=== PATIENT | male | born 1960 | race Caucasian/White ===

== ENCOUNTER → 2016-11-09 | Outpatient (CLI) | payer BC | LOC: KOH-I 11-08 11:00 | DX: I10 Essential (primary) hypertension (principal) | CPT/HCPCS: 93975 ==

== ENCOUNTER → 2021-03-31 | Outpatient (CLI) | payer BC ==
[~2021-03-31] MED LIST: AMLODIPINE BESY10 MG PO; ASPIRIN EC81 MG PO; ATORVASTATIN CA20 MG PO; CATAPRES 0.1MG0.1 MG PO; CHRONULAC20 GM/30 M PO; CLOPIDOGREL75 MG PO; COLACE 100MG C100 MG PO; DUEXIS 800-26.1 EACH PO; ELIQUIS 5 MG TAB5 MG PO; HYDRALAZINE HCL25 MG PO; HYDRALAZINE HCL50 MG PO; LIPITOR80 MG PO; LISINOPRIL20 MG PO; LOPRESSOR 25 MG25 MG PO; LOPRESSOR100 MG PO; NITROGLYCERIN0.4 MG SL; PANTOPRAZOLE SO40 MG PO; POLYETHYLENE GL17 GM PO; SENNA LAX8.6 MG PO; TYLOPHEN500 MG PO; ZESTRIL2.5 MG PO; ZESTRIL5 MG PO
[2021-03-31 14:55] LABS: BUN/CREATININE RATIO 14 (0-10)
[2021-03-31 16:57] LABS: HEMOGLOBIN 14.8 gm/dl (14.0-17.5); RED BLOOD COUNT 5.06 M/UL (4.20-5.50); WHITE BLOOD COUNT 7.2 K/UL (4.5-11.0)
== END ==
LOC: LAB 13:42
PROVIDERS: Family Medicine; Physician Assistant Surgical
DX: I25.10 Atherosclerotic heart disease of native coronary artery without angina pectoris (principal)
CPT/HCPCS: 36415; 80053; 80061; 85025

== ENCOUNTER → 2021-09-06 | Outpatient (CLI) | payer BC ==
[2021-09-07 08:13] LABS: A/G RATIO 1.5 (1.2-2.2); ALKALINE PHOSPHATASE, S 97 IU/L (44-121); ALT (SGPT) 28 IU/L (0-44); AST (SGOT) 22 IU/L (0-40); BILIRUBIN, TOTAL 0.7 mg/dL (0.0-1.2); BUN 10 mg/dL (6-24); BUN/CREATININE RATIO 9 (9-20); CALCIUM, SERUM 9.9 mg/dL (8.7-10.2); CARBON DIOXIDE, TOTAL 27 mmol/L (20-29); CHLORIDE, SERUM 103 mmol/L (96-106); CHOLESTEROL, TOTAL 84 mg/dL (100-199); CREATININE, SERUM 1.14 mg/dL (0.76-1.27); EGFR IF AFRICN AM 81 (>59); EGFR IF NONAFRICN AM 70 (>59); GLUCOSE, SERUM 183 mg/dL (65-99); HDL CHOLESTEROL 32 mg/dL (>39); LDL CHOLESTEROL CALC 31 mg/dL (0-99); POTASSIUM, SERUM 4.5 mmol/L (3.5-5.2); PROTEIN, TOTAL, SERUM 7.4 g/dL (6.0-8.5); SODIUM, SERUM 141 mmol/L (134-144); T. CHOL/HDL RATIO 2.6 ratio (0.0-5.0); TRIGLYCERIDES 116 mg/dL (0-149)
== END ==
LOC: LAB 13:12
PROVIDERS: Physician Assistant Surgical
DX: N28.0 Ischemia and infarction of kidney (principal); I74.10 Embolism and thrombosis of unspecified parts of aorta; I25.10 Atherosclerotic heart disease of native coronary artery without angina pectoris
CPT/HCPCS: 36415; 80053; 80061

== ENCOUNTER → 2021-09-06 | Outpatient (CLI) | payer BC | LOC: HEART 5 15:16 | DX: I48.0 Paroxysmal atrial fibrillation (principal) ==

== ENCOUNTER → 2021-09-07 | Outpatient (CLI) | payer BC | LOC: CT 10:53 | DX: I74.10 Embolism and thrombosis of unspecified parts of aorta (principal); I70.1 Atherosclerosis of renal artery | CPT/HCPCS: Q9967 ==

== ENCOUNTER → 2021-09-29 | Outpatient (CLI) | payer BC ==
[~2021-09-29] MED LIST changes: +SOTALOL80 MG PO; +ZYRTEC10 MG PO
[2021-09-29 12:54] LABS: HEMOGLOBIN 15.1 gm/dl (14.0-17.5); RED BLOOD COUNT 5.27 M/UL (4.20-5.50); WHITE BLOOD COUNT 7.4 K/UL (4.5-11.0)
[2021-09-30 07:10] LABS: CREATININE, SERUM 1.09 mg/dL (0.76-1.27)
[2021-09-30 08:14] LABS: TSH 4.63 uIU/mL (0.450-4.500)
== END ==
LOC: LAB 11:41
PROVIDERS: Internal Medicine Cardiovascular Disease
DX: I25.10 Atherosclerotic heart disease of native coronary artery without angina pectoris (principal); I10 Essential (primary) hypertension; R00.2 Palpitations; I48.0 Paroxysmal atrial fibrillation; R00.1 Bradycardia, unspecified
CPT/HCPCS: 36415; 80048; 84439; 84443; 84481; 85025; J7040; J7050

== ENCOUNTER → 2021-10-01 | Outpatient (CLI) | payer BC | LOC: CATH 07:14 → EDSTATUS 07:30 → CATH 07:30 | DX: I48.19 Other persistent atrial fibrillation (principal); I25.119 Atherosclerotic heart disease of native coronary artery with unspecified angina pectoris; I10 Essential (primary) hypertension; I25.2 Old myocardial infarction; I74.10 Embolism and thrombosis of unspecified parts of aorta; K21.9 Gastro-esophageal reflux disease without esophagitis; Z79.01 Long term (current) use of anticoagulants; Z79.82 Long term (current) use of aspirin; Z79.891 Long term (current) use of opiate analgesic; Z79.899 Other long term (current) drug therapy; Z95.5 Presence of coronary angioplasty implant and graft; Z98.52 Vasectomy status; Z82.49 Family history of ischemic heart disease and other diseases of the circulatory system | CPT/HCPCS: 92960; 93005; J1200; J1742; J2250; J2310; J3010; J7040; J7050 ==

== ENCOUNTER → 2021-10-27 | Outpatient (CLI) | payer BC ==
[2021-10-27 10:29] LABS: HEMOGLOBIN 14.3 gm/dl (14.0-17.5); RED BLOOD COUNT 5.07 M/UL (4.20-5.50); WHITE BLOOD COUNT 7.1 K/UL (4.5-11.0)
[2021-10-28 08:15] LABS: A/G RATIO 1.6 (1.2-2.2); ALKALINE PHOSPHATASE, S 74 IU/L (44-121); ALT (SGPT) 23 IU/L (0-44); AST (SGOT) 18 IU/L (0-40); BILIRUBIN, TOTAL 0.7 mg/dL (0.0-1.2); BUN 15 mg/dL (6-24); BUN/CREATININE RATIO 13 (9-20); CALCIUM, SERUM 8.9 mg/dL (8.7-10.2); CARBON DIOXIDE, TOTAL 21 mmol/L (20-29); CHLORIDE, SERUM 102 mmol/L (96-106); CHOLESTEROL, TOTAL 78 mg/dL (100-199); CREATININE, SERUM 1.16 mg/dL (0.76-1.27); GLOBULIN, TOTAL 2.6 g/dL (1.5-4.5); GLUCOSE, SERUM 168 mg/dL (65-99); HDL CHOLESTEROL 30 mg/dL (>39); LDL CHOLESTEROL CALC 30 mg/dL (0-99); POTASSIUM, SERUM 3.8 mmol/L (3.5-5.2); PROTEIN, TOTAL, SERUM 6.8 g/dL (6.0-8.5); SODIUM, SERUM 139 mmol/L (134-144); T. CHOL/HDL RATIO 2.6 ratio (0.0-5.0); TRIGLYCERIDES 93 mg/dL (0-149)
== END ==
LOC: LAB 09:46
PROVIDERS: Family Medicine
DX: I25.10 Atherosclerotic heart disease of native coronary artery without angina pectoris (principal)
CPT/HCPCS: 36415; 80053; 80061; 85025

== ENCOUNTER → 2021-12-09 | Outpatient (CLI) | payer BC | LOC: HEART 5 07:43 | DX: I20.9 Angina pectoris, unspecified (principal); Z13.9 Encounter for screening, unspecified; I48.0 Paroxysmal atrial fibrillation; R00.2 Palpitations; I08.1 Rheumatic disorders of both mitral and tricuspid valves | CPT/HCPCS: 78452; A9502; J2785 ==

== ENCOUNTER → 2022-01-07 | Outpatient (CLI) | payer BC ==
[~2022-01-07] MED LIST changes: +BROMPHENIR-PSE118 ML PO; +CETIRIZINE HCL10 MG PO; +ELIQUIS5 MG PO; +IBU800 MG PO; +ISOSORBIDE MONO30 MG PO; +LISINOPRIL10 MG PO; +METFORMIN HCL1000 M1 PO; +METOPROLOL TART50 MG PO; +SOTALOL160 MG PO
[2022-01-07 14:04] LABS: HEMOGLOBIN 15.5 gm/dl (14.0-17.5); RED BLOOD COUNT 5.48 M/UL (4.20-5.50); WHITE BLOOD COUNT 7.7 K/UL (4.5-11.0)
[2022-01-07 14:42] LABS: BUN/CREATININE RATIO 11 (0-10)
== END ==
LOC: LAB 13:35
PROVIDERS: Internal Medicine Cardiovascular Disease
DX: I25.10 Atherosclerotic heart disease of native coronary artery without angina pectoris (principal); I48.0 Paroxysmal atrial fibrillation; R94.39 Abnormal result of other cardiovascular function study
CPT/HCPCS: 36415; 71046; 80048; 85025

== ENCOUNTER 2022-01-11 06:50 | Outpatient (CLI) | payer BC ==
[~2022-01-11] VITALS: Ht 182.9 cm; Wt 116.0 kg
[~2022-01-11 06:50] MED LIST changes: -BROMPHENIR-PSE118 ML PO; -CETIRIZINE HCL10 MG PO; -ELIQUIS5 MG PO; -IBU800 MG PO; -ISOSORBIDE MONO30 MG PO; -LISINOPRIL10 MG PO; -METFORMIN HCL1000 M1 PO; -METOPROLOL TART50 MG PO; -SOTALOL160 MG PO
[2022-01-11] MEDS ORDERED: METFORMIN HCL1000 M1 PO (07:27)
[2022-01-11] MEDS ORDERED: METOPROLOL TART50 MG PO (07:27)
[2022-01-11] MEDS ORDERED: ISOSORBIDE MONO30 MG PO (07:28)
[2022-01-11] MEDS ORDERED: LISINOPRIL10 MG PO (07:32)
[2022-01-11] MEDS ORDERED: SOTALOL160 MG PO (07:33)
[2022-01-11] MEDS ORDERED: IBU800 MG PO (16:15)
[2022-01-11] MEDS ORDERED: BROMPHENIR-PSE118 ML PO (16:17)
[2022-01-11] MEDS ORDERED: ELIQUIS5 MG PO (16:18)
[2022-01-11] MEDS ORDERED: CETIRIZINE HCL10 MG PO (16:34)
[2022-01-11 18:43] LABS: RED BLOOD COUNT 4.57 M/UL (4.20-5.50); WHITE BLOOD COUNT 6.3 K/UL (4.5-11.0)
[2022-01-11 18:46] LABS: HEMOGLOBIN 12.8 gm/dl (14.0-17.5)
[2022-01-11 19:27] LABS: BUN/CREATININE RATIO 15 (0-10)
[2022-01-12 05:36] LABS: HEMOGLOBIN 13.3 gm/dl (14.0-17.5); RED BLOOD COUNT 4.86 M/UL (4.20-5.50)
[2022-01-12 05:55] LABS: BUN/CREATININE RATIO 11 (0-10)
[2022-01-12] MEDS ORDERED: BRILINTA90 MG PO (09:22)
== END 2022-01-12 13:31 | disposition home or self-care (01) ==
LOC: CATH 06:50 → CCU 13:18 → CATH 13:18
PROVIDERS: Internal Medicine Cardiovascular Disease
DX: I25.118 Atherosclerotic heart disease of native coronary artery with other forms of angina pectoris (principal); I48.19 Other persistent atrial fibrillation; I10 Essential (primary) hypertension; I48.0 Paroxysmal atrial fibrillation; I25.2 Old myocardial infarction; E78.5 Hyperlipidemia, unspecified; Z79.01 Long term (current) use of anticoagulants; Z79.82 Long term (current) use of aspirin; Z95.5 Presence of coronary angioplasty implant and graft; Z82.49 Family history of ischemic heart disease and other diseases of the circulatory system
CPT/HCPCS: 36415; 80048; 82550; 82553; 84484; 85027; 85347; 92960; 93005; 99152; 99153; C1725; C1769; C1874; C1887; C1894; C9600; J1644; J1742; J2250; J2370; J3010; J3246; J7030; Q9967

== ENCOUNTER 2022-01-13 09:22 | Emergency (ER) | payer BC ==
[~2022-01-13 09:22] MED LIST changes: +BRILINTA90 MG PO; +BROMPHENIR-PSE118 ML PO; +CETIRIZINE HCL10 MG PO; +ELIQUIS5 MG PO; +IBU800 MG PO; +ISOSORBIDE MONO30 MG PO; +LISINOPRIL10 MG PO; +METFORMIN HCL1000 M1 PO; +METOPROLOL TART50 MG PO; +SOTALOL160 MG PO
[2022-01-13 10:07] LABS: HEMOGLOBIN 15.5 gm/dl (14.0-17.5); RED BLOOD COUNT 5.39 M/UL (4.20-5.50); WHITE BLOOD COUNT 8.7 K/UL (4.5-11.0)
[2022-01-13 10:44] LABS: BUN/CREATININE RATIO 11 (0-10)
== END 2022-01-13 11:35 | disposition home or self-care (01) ==
LOC: ER1 09:22
PROVIDERS: Student in an Organized Health Care Education/Training Program
DX: I48.91 Unspecified atrial fibrillation (principal); I25.10 Atherosclerotic heart disease of native coronary artery without angina pectoris; E11.9 Type 2 diabetes mellitus without complications; I10 Essential (primary) hypertension; Z79.01 Long term (current) use of anticoagulants; Z79.899 Other long term (current) drug therapy
CPT/HCPCS: 71045; 80053; 82550; 82553; 84439; 84443; 84484; 85025; 93005; 99285